=== PATIENT | female | born 1955 | race Asian ===

== ENCOUNTER 2024-02-23 13:03 | Inpatient (IN) | payer OTHER ==
[~2024-02-23] VITALS: Ht 165.1 cm; Wt 55.8 kg
[2024-02-23] MEDS ORDERED: LISI1TAB53 PO (13:08)
[2024-02-23] MEDS ORDERED: NITR0.4T47 SL (13:08)
[2024-02-23] MEDS ORDERED: ASA81 PO (13:08)
[2024-02-23] MEDS ORDERED: iohexoL 350 mgI/mL, 100 ML INFUS..BTL IV ONE (13:18)
[2024-02-23 13:33] VITALS: BP_SYST 189; PULSE 92; RESP 22; TEMP 98.3; O2SAT 100
[2024-02-23] MEDS: TRANEXAMIC ACID 1,000 MG/10 ML VIAL IV ONE (14:08)
[2024-02-23 14:20] LABS: BASOPHILS # (AUTO) 0.1 K/uL (0.0-0.2); BASOPHILS % (AUTO) 0.8 % (0.0-2.0); EOSINOPHILS # (AUTO) 0.2 K/uL (0.0-0.4); EOSINOPHILS % (AUTO) 2.1 % (0.0-4.0); HEMATOCRIT 47.8 % (36-48); LYMPHOCYTES # (AUTO) 2.2 K/uL (1.0-5.5); LYMPHOCYTES % (AUTO) 25.2 % (20.5-51.5); MEAN CORPUSCULAR HEMOGLOBIN 29 pg (27-31); MEAN CORPUSCULAR HGB CONC 34 % (32-36); MEAN CORPUSCULAR VOLUME 86 fL (79.0-98.0); MONOCYTES # (AUTO) 0.4 K/uL (0.0-1.0); NEUTROPHILS # (AUTO) 5.9 K/uL (1.8-7.7); NEUTROPHILS % (AUTO) 66.9 % (40.0-70.0); PLATELET COUNT (AUTO) 75 K/uL (130-430); RED BLOOD CELL COUNT(AUTO) 5.54 MIL/uL (4.2-6.2); RED CELL DISTRIBUTION WIDTH 14.6 % (9.0-15.0); WHITE BLOOD COUNT (AUTO) 8.9 K/uL (4.8-10.8)
[2024-02-23] MEDS ORDERED: cloNIDine HCL 0.1 MG TABLET ONE (14:36)
[2024-02-23] MEDS: cloNIDine HCL 0.1 MG TABLET PO ONE (14:40)
[2024-02-23] MEDS: CLOPIDOGREL BISULFATE 75 MG TABLET PO ONE (14:40)
[2024-02-23] MEDS: ASPIRIN 81 MG TABLET(ECOTRIN) PO ONE (14:40)
[2024-02-23 14:41] LABS: ALANINE AMINOTRANSFERASE 34 U/L (12-78); ALBUMIN 4.5 g/dL (3.4-4.8); ANION GAP 20 (5-15); ASPARTATE AMINOTRANSFERASE 28 U/L (10-37); BILIRUBIN,DIRECT 0.1 mg/dL (0.0-0.3); CALCIUM 9.4 mg/dL (8.4-11.0); CARBON DIOXIDE 21 mmol/L (23-29); CHLORIDE 102 mmol/L (98-107); CREATINE KINASE, TOTAL 79 U/L (26-192); GFR AFRICAN AMERICAN 91 mL/min (>90); GLUCOSE 99 mg/dL (74-106); POTASSIUM 3.2 mmol/L (3.5-5.1); SODIUM SERUM 143 mmol/L (136-145); TOTAL BILIRUBIN 0.7 mg/dL (0.0-1.0); TOTAL PROTEIN, SERUM 8.1 g/dL (6.4-8.3); UREA NITROGEN, BLOOD 11 mg/dL (8-21)
[2024-02-23 15:03] LABS: ALCOHOL, BLOOD < 3 mg/dL (<10); GFR NON AFRICAN-AMERICAN 76 mL/min (>90)
[2024-02-23 16:31] LABS: PROTHROMBIN TIME 9.9 SECS (9.5-12.5)
[2024-02-23] MEDS: NACL 0.9% 1,000 ML IV ONE (22:13)
[2024-02-23 23:44] VITALS: BP_SYST 157; PULSE 77; RESP 18; TEMP 97
[2024-02-23] MEDS: D5/0.45 NS 1,000 ML IV SCH (23:47)
[2024-02-24] VITALS (7 sets, daily range): BP systolic 115–142; PULSE 61–72; RESP 14–20; TEMP 97–98.2; O2SAT 95–98
[2024-02-24] MEDS ORDERED: NITROGLYCERIN 0.4 MG TAB.SUBL SL PRN (09:45)
[2024-02-24] MEDS ORDERED: NALOXONE HCL 0.4 MG/ML AMP (NARCAN) IVP PRN ×2 (09:45)
[2024-02-24] MEDS ORDERED: LORazepam 2 MG/ML VIAL IVP PRN (09:45)
[2024-02-24] MEDS ORDERED: HYDROcodone/ACETAMIN 5-325 MG TAB (NORCO/ VICODIN) PO PRN (09:45)
[2024-02-24] MEDS ORDERED: ONDANSETRON HCL 4 MG/2 ML VIAL IVP PRN (09:45)
[2024-02-24] MEDS ORDERED: HYDROcodone/ACETAMIN 10-325 MG TAB PO PRN (09:45)
[2024-02-24] MEDS ORDERED: ACETAMINOPHEN 325 MG TABLET PO PRN ×2 (09:45→10:15)
[2024-02-24 11:13] LABS: BASOPHILS % (AUTO) 0.7 % (0.0-2.0); EOSINOPHILS # (AUTO) 0.1 K/uL (0.0-0.4); HEMATOCRIT 40.5 % (36-48); HEMOGLOBIN 13.6 g/dL (12.0-16.0); LYMPHOCYTES # (AUTO) 1.7 K/uL (1.0-5.5); LYMPHOCYTES % (AUTO) 24.1 % (20.5-51.5); MEAN CORPUSCULAR HEMOGLOBIN 29 pg (27-31); MEAN CORPUSCULAR HGB CONC 34 % (32-36); MEAN CORPUSCULAR VOLUME 85 fL (79.0-98.0); MONOCYTES # (AUTO) 0.6 K/uL (0.0-1.0); MONOCYTES % (AUTO) 8.4 % (1.7-9.3); NEUTROPHILS # (AUTO) 4.5 K/uL (1.8-7.7); NEUTROPHILS % (AUTO) 64.8 % (40.0-70.0); PLATELET COUNT (AUTO) 221 K/uL (130-430); RED BLOOD CELL COUNT(AUTO) 4.74 MIL/uL (4.2-6.2); RED CELL DISTRIBUTION WIDTH 14.3 % (9.0-15.0); WHITE BLOOD COUNT (AUTO) 6.9 K/uL (4.8-10.8)
[2024-02-24] MEDS: ASPIRIN 81 MG TAB.CHEW PO ONE (11:13)
[2024-02-24 11:33] LABS: ALBUMIN 3.6 g/dL (3.4-4.8); CALCIUM 8.9 mg/dL (8.4-11.0); CREATININE 0.79 mg/dL (0.55-1.30); POTASSIUM 3.8 mmol/L (3.5-5.1); THYROID STIMULATING HORMONE 5.51 uIu/mL (0.34-4.82); TOTAL BILIRUBIN 0.7 mg/dL (0.0-1.0); TOTAL PROTEIN, SERUM 7.2 g/dL (6.4-8.3)
[2024-02-24] MEDS: NORMAL SALINE 5 ML DISP.SYRIN IVF SCH (18:36)
[2024-02-25 04:02] LABS: BASOPHILS # (AUTO) 0.1 K/uL (0.0-0.2); BASOPHILS % (AUTO) 1.1 % (0.0-2.0); EOSINOPHILS # (AUTO) 0.3 K/uL (0.0-0.4); EOSINOPHILS % (AUTO) 3.6 % (0.0-4.0); HEMATOCRIT 40.7 % (36-48); HEMOGLOBIN 13.5 g/dL (12.0-16.0); LYMPHOCYTES # (AUTO) 2.5 K/uL (1.0-5.5); MEAN CORPUSCULAR HEMOGLOBIN 29 pg (27-31); MEAN CORPUSCULAR HGB CONC 33 % (32-36); MEAN CORPUSCULAR VOLUME 86 fL (79.0-98.0); MONOCYTES # (AUTO) 0.8 K/uL (0.0-1.0); MONOCYTES % (AUTO) 10.6 % (1.7-9.3); NEUTROPHILS # (AUTO) 3.8 K/uL (1.8-7.7); NEUTROPHILS % (AUTO) 50.7 % (40.0-70.0); PLATELET COUNT (AUTO) 219 K/uL (130-430); RED BLOOD CELL COUNT(AUTO) 4.73 MIL/uL (4.2-6.2); RED CELL DISTRIBUTION WIDTH 14.6 % (9.0-15.0); WHITE BLOOD COUNT (AUTO) 7.5 K/uL (4.8-10.8)
[2024-02-25 04:20] LABS: CREATININE 0.66 mg/dL (0.55-1.30); POTASSIUM 3.1 mmol/L (3.5-5.1)
[2024-02-25 04:31] VITALS: BP_SYST 144; PULSE 64; RESP 16; TEMP 98; O2SAT 98
[2024-02-25 09:00] VITALS: O2SAT 98
[2024-02-25] MEDS: ASPIRIN 81 MG TAB.CHEW PO SCH (09:07)
[2024-02-25] MEDS: HYDROCHLOROTHIAZIDE 12.5 MG CAPSULE (HCTZ) PO SCH (09:10)
[2024-02-25] MEDS: LISINOPRIL 10 MG TABLET (PRINIVIL) PO SCH (09:11)
[2024-02-25] MEDS: POTASSIUM CHLORIDE 20 MEQ TABLET.ER PO ONE (11:04)
[2024-02-25 11:05] VITALS: BP_SYST 152; PULSE 71; RESP 16; TEMP 97.7; O2SAT 99
[2024-02-25] MEDS ORDERED: LIP40 PO (12:35)
[2024-02-25] MEDS ORDERED: HYDR12.585 PO (12:35)
[2024-02-25 15:12] VITALS: BP_SYST 152; PULSE 71; RESP 16; TEMP 97.7; O2SAT 87
[2024-02-25] MEDS ORDERED: lisinopriL 20 MG TABLET PO SCH (21:00)
== END 2024-02-25 15:30 | disposition home or self-care (01) | DRG 305 ==
LOC: SED 13:03 → STU 15:18
PROVIDERS: ADMIT Preventive Medicine Preventive Medicine/Occupational Environmental Medicine; ATTEND Preventive Medicine Preventive Medicine/Occupational Environmental Medicine
DX: I16.0 Hypertensive urgency (principal); G45.9 Transient cerebral ischemic attack, unspecified; E87.20 Acidosis, unspecified; E87.0 Hyperosmolality and hypernatremia; I10 Essential (primary) hypertension; E78.5 Hyperlipidemia, unspecified; E03.9 Hypothyroidism, unspecified; E87.6 Hypokalemia; Z86.73 Personal history of transient ischemic attack (TIA), and cerebral infarction without residual deficits; Z85.3 Personal history of malignant neoplasm of breast; Z79.899 Other long term (current) drug therapy; Z79.82 Long term (current) use of aspirin
CPT/HCPCS: 36415; 70450-TC; 70496; 70498; 71045; 80048; 80053; 80061; 80076; 82550; 83605; 83880; 84443; 84484; 85025; 85610; 85730; 93005; 93306; 97112-GP; 97116-GP; 99285; G0378; G0482; Q9967